=== PATIENT | female | born 1955 | race Caucasian/White ===

== ENCOUNTER 2021-10-10 09:14 | Day surgery (SDC) | payer MEDICARE ==
[~2021-10-10] VITALS: Ht 167.6 cm; Wt 79.4 kg
[~2021-10-10 09:14] MED LIST: ARNUITY EL50 MCG/ACT; NO HOME MEDS; [UNRECOGNIZED DRUG - REMARK]
[2021-10-10] MEDS ORDERED: TRAMADOL HCL50 MG PO (11:06)
[2021-10-10 12:06] VITALS: BP 124/66
== END 2021-10-10 12:26 | disposition home or self-care (01) ==
LOC: ORM 09:14
PROVIDERS: ATTEND Surgery
PROC: 0FT44ZZ Resection of Gallbladder, Percutaneous Endoscopic Approach (ICD-10-PCS; principal; 2021-10-10)
DX: K82.4 Cholesterolosis of gallbladder (principal); F17.210 Nicotine dependence, cigarettes, uncomplicated
CPT/HCPCS: J0131

== ENCOUNTER 2022-02-14 06:36 | Day surgery (SDC) | payer MEDICARE ==
[~2022-02-14] VITALS: Ht 167.6 cm; Wt 81.6 kg
[~2022-02-14 06:36] MED LIST changes: +TRAMADOL HCL50 MG PO
[2022-02-14 08:41] VITALS: BP 113/66
== END 2022-02-14 09:16 | disposition home or self-care (01) ==
LOC: ENDO 06:36 → ORM 08:45 → ENDO 08:45
PROVIDERS: ATTEND Surgery
PROC: 0DBN8ZX Excision of Sigmoid Colon, Via Natural or Artificial Opening Endoscopic, Diagnostic (ICD-10-PCS; principal; 2022-02-14)
DX: K63.5 Polyp of colon (principal); K57.30 Diverticulosis of large intestine without perforation or abscess without bleeding; K64.4 Residual hemorrhoidal skin tags; F17.210 Nicotine dependence, cigarettes, uncomplicated